=== PATIENT | male | born 1965 | race Caucasian/White ===

== ENCOUNTER 2021-03-06 16:47 | Observation (INO) ==
[2021-03-06] MEDS ORDERED: Acetaminophen 325 MG TABLET PO PRN (17:47)
[2021-03-06] MEDS ORDERED: Ondansetron 4 MG/2 ML VIAL IVP PRN (17:47)
[2021-03-06] MEDS ORDERED: Melatonin 3 MG TABLET PO PRN (17:47)
[2021-03-06] MEDS ORDERED: Naloxone 0.4 MG/ML INJ IVP PRN (17:47)
[2021-03-06] MEDS ORDERED: Ampicillin/Sulbactam 3,000 MG in 0.9 % Sodium Chloride Mini Bag 100 ML IVPB SCH (18:00)
[2021-03-06] MEDS ORDERED: Ipratropium/Albuterol Neb 3 ML IH PRN (18:04)
[2021-03-06] MEDS ORDERED: Azithromycin 250 MG TABLET PO SCH (18:15)
[2021-03-06 18:48] LABS: Basophils % 0.2 %; Eosinophils # 0.2 K/mcL (0.0-0.6); Eosinophils % 1.7 %; Hemoglobin 12.8 g/dL (12.9-16.9); Immature Granulocytes % 0.2 % (0-4); Lymphocytes % 32.1 %; Mean Corpuscular HGB Conc 33.7 g/dL (31.6-35.5); Mean Corpuscular Hemoglobin 31.3 pg (28.0-33.3); Mean Corpuscular Volume 92.9 fL (83.0-100.0); Mean Platelet Volume 10.4 fL (9.4-12.4); Monocytes # 0.8 K/mcL (0.0-1.3); Monocytes % 9.2 %; Neutrophils # 5.2 K/mcL (1.6-8.9); Platelet Count 259 K/mcL (140-400); Red Blood Count 4.09 M/mcL (4.19-5.50); Red Cell Distribution Width 13.3 % (11.5-14.5); Segmented Neutrophils % 56.6 %; White Blood Count 9.2 K/mcL (4.3-11.1)
[2021-03-06] MEDS ORDERED: cefTRIAXone 1,000 MG in 0.9 % Sodium Chloride Mini Bag 100 ML IVPB SCH (19:00)
[2021-03-06 19:07] LABS: Acetaminophen < 10 mcg/mL (10-20); Salicylate < 2.5 mg/dL (15.0-30.0)
[2021-03-06 19:09] LABS: Creatine Kinase 992 Units/L (30-223); Ethanol < 10 mg/dL (Less than 10)
[2021-03-06] MEDS: Ringers Solution, Lactated 1,000 ML IVC SCH (19:12)
[2021-03-06 19:13] LABS: Alanine Aminotransferase 44 Units/L (7-52); Albumin 4.1 g/dL (3.5-5.7); Albumin/Globulin Ratio 1.5 (1.1-2.2); Alkaline Phosphatase 35 Units/L (34-104); Aspartate Amino Transferase 84 Units/L (13-39); BUN/Creatinine Ratio 26 (6-26); Bilirubin,Total 0.6 mg/dL (0.3-1.0); Blood Urea Nitrogen 20 mg/dL (6-20); Calcium 9.1 mg/dL (8.6-10.3); Carbon Dioxide 23 mEq/L (23-29); Chloride 107 mEq/L (98-107); Globulin 2.7 g/dL (2.4-3.5); Glucose 94 mg/dL (70-105); Magnesium 1.8 mg/dL (1.6-2.6); Osmolality,Calculated 292 (280-300); Phosphorous 2.8 mg/dL (2.7-4.5); Potassium 3.4 mEq/L (3.5-5.1); Sodium 140 mEq/L (136-145); Total Protein 6.8 g/dL (6.4-8.9); eGFR For African Americans > 60 (> 60); eGFR For Non-African Americans > 60 (> 60)
[2021-03-06 19:22] LABS: Thyroid Stimulating Hormone 1.242 mcIU/mL (0.340-5.600)
[2021-03-06] MEDS: Ipratropium/Albuterol Neb 3 ML IH SCH (22:09)
[2021-03-06 22:10] LABS: Amphetamine Screen,Urine Negative ng/mL (Cutoff=1000); Barbiturate Screen,Urine Negative ng/mL (Cutoff=200); Benzodiazepines Screen,Urine Negative ng/mL (Cutoff=200); Cannabinoid Screen,Urine Positive ng/mL (Cutoff = 50); Cocaine Screen,Urine Negative ng/mL (Cutoff= 300); Opiate Screen,Urine Negative ng/mL (Cutoff=300); Phencyclidine Screen,Urine Negative ng/mL (Cutoff=25)
[2021-03-07 00:44] LABS: Basophils % 0.2 %; Eosinophils # 0.2 K/mcL (0.0-0.6); Eosinophils % 2.5 %; Hematocrit 37.6 % (37.5-50.1); Hemoglobin 12.1 g/dL (12.9-16.9); Immature Granulocytes % 0.2 % (0-4); Lymphocytes # 3.2 K/mcL (0.6-4.6); Mean Corpuscular HGB Conc 32.2 g/dL (31.6-35.5); Mean Corpuscular Volume 96.4 fL (83.0-100.0); Mean Platelet Volume 10.6 fL (9.4-12.4); Monocytes # 0.8 K/mcL (0.0-1.3); Monocytes % 9.9 %; Neutrophils # 4.2 K/mcL (1.6-8.9); Platelet Count 241 K/mcL (140-400); Red Cell Distribution Width 13.3 % (11.5-14.5); Segmented Neutrophils % 49.2 %; White Blood Count 8.5 K/mcL (4.3-11.1)
[2021-03-07 01:08] LABS: Alanine Aminotransferase 39 Units/L (7-52); Albumin 3.8 g/dL (3.5-5.7); Albumin/Globulin Ratio 1.7 (1.1-2.2); Alkaline Phosphatase 31 Units/L (34-104); Aspartate Amino Transferase 69 Units/L (13-39); BUN/Creatinine Ratio 26 (6-26); Bilirubin,Total 0.5 mg/dL (0.3-1.0); Blood Urea Nitrogen 20 mg/dL (6-20); Calcium 8.8 mg/dL (8.6-10.3); Carbon Dioxide 24 mEq/L (23-29); Chloride 107 mEq/L (98-107); Globulin 2.2 g/dL (2.4-3.5); Glucose 97 mg/dL (70-105); Magnesium 1.9 mg/dL (1.6-2.6); Osmolality,Calculated 293 (280-300); Phosphorous 3.4 mg/dL (2.7-4.5); Potassium 3.6 mEq/L (3.5-5.1); Sodium 140 mEq/L (136-145); eGFR For African Americans > 60 (> 60); eGFR For Non-African Americans > 60 (> 60)
[2021-03-07 01:10] LABS: % Iron Saturation 17 % (20-55); Iron 53 mcg/dL (65-175); Transferrin 220 mg/dL (203-362)
[2021-03-07 01:24] LABS: Ferritin 243 ng/mL (20-250)
[2021-03-07 01:29] LABS: Folate 18.8 ng/mL (3.0-16.0); Vitamin B12 284 pg/mL (250-1100)
[2021-03-07 03:10] LABS: Estimated Average Glucose 117 mg/dl; Hemoglobin A1C 5.7 %
[2021-03-07 03:18] LABS: Hepatitis B Surface Antigen Nonreactive (Nonreactive)
[2021-03-07] MEDS: Ipratropium/Albuterol Neb 3 ML IH SCH ×2 (03:46→09:52)
[2021-03-07 03:50] LABS: Hepatitis C Virus Antibody Nonreactive (Nonreactive)
[2021-03-07 03:51] LABS: Hepatitis B Core IgM Nonreactive (Nonreactive)
[2021-03-07 03:52] LABS: Hepatitis A Antibody IgM Nonreactive (Nonreactive)
[2021-03-07] MEDS: Ringers Solution, Lactated 1,000 ML IVC SCH (04:42)
[2021-03-07] MEDS ORDERED: *HR* Heparin 5,000 UNIT/ML VIAL SQ SCH (06:00)
[2021-03-07] MEDS ORDERED: Iron Sucrose Complex 400 MG in 0.9 % Sodium Chloride 250 ML IVPB ONE (08:12)
[2021-03-07] MEDS ORDERED: Finasteride 5 MG TABLET PO SCH (09:00)
[2021-03-07] MEDS ORDERED: lisinopriL 20 MG TABLET PO SCH (09:00)
[2021-03-07 11:13] VITALS: BP 175/84
== END 2021-03-07 14:44 | disposition home or self-care (01) ==
LOC: 3ANU → SUATTDRO 16:48
PROVIDERS: ADMIT Pharmacist; ATTEND Internal Medicine